=== PATIENT | female | born 1980 | race Caucasian/White ===

== ENCOUNTER 2016-09-23 17:15 | Emergency (ER) | payer BC ==
--- NOTE | 2016-09-23 19:30 | UC ---
Back Pain HPI - HPI Summary HPI Summary: lumbar pain, bilat. Started yesterday, much worse this AM. THinks it happened when she was holding a mat for some kind of sports practice. No falls, no other trauma. Pain progressed today. Feels stiff. Hurts to bend forward, get up out of chair or car. No fever. Wants to make sure it's not a kidney infection, has had one in past - History of Current Complaint Chief Complaint: UCBackPain Stated Complaint: BACK PAIN Time Seen by Provider: 09/23/16 19:16 Hx Obtained From: Patient Hx Last Menstrual Period: 09/14/16 Onset/Duration: Gradual Onset, Lasting Days - 2 Timing: Constant Severity Initially: Mild Severity Currently: Mild Back Pain: Is Discrete @ - bilat lumbar Character: Dull, Aching, Stiffness Aggravating: Movement, Bending Alleviating: Rest, Position Associated Signs And Symptoms: Positive: Flank Pain, Pain with Weight Bearing. Negative: Swelling, Redness, Bruising, Fever, Weakness, Numbness, Abdominal Pain , Bladder Incontinence, Bowel Incontinence - Risk Factors AAA Risk Factors: Negative TAD Risk Factors: Negative Cauda Equina Risk Factors: Negative Epidural Abscess Risk Factors: Negative - Allergies/Home Medications Allergies/Adverse Reactions: Allergies Allergy/AdvReac Type Severity Reaction Status Date / Time Sulfa Drugs Allergy Severe Edema Verified 09/23/16 19:10 Cefuroxime [From Ceftin] Allergy Intermediate Edema Verified 09/23/16 19:10 Home Medications: Home Medications Ibuprofen TAB* [Advil TAB*] 400 mg PO Q8H PRN 09/23/16 [History Confirmed ] PMH/Surg Hx/FS Hx/Imm Hx Endocrine History Of: Reports: Thyroid Disease - History of an enlarged thyroid , but blood tests were normal. Denies: Diabetes, Hyperthyroidism, Hypothyroidism, Dyslipidemia Cardiovascular History Of: Denies: Cardiac Disorders, Hypertension, Pacemaker/ICD, Myocardial Infarction , Congestive Heart Failure, Atrial Fibrillation, Deep Vein Thrombosis, Bleeding Disorders Respiratory History Of: Reports: Asthma Denies: COPD GI/ History Of: Denies: Gastroesophageal Reflux, Ulcer, Gastrointestinal Bleed, Gall Bladder Disease, Kidney Stones, Diverticulitis, Renal Disease, Urosepsis Neurological History Of: Denies: TIA, CVA, Dementia, Seizures, Migraine Psychological History Of: Reports: Depression Denies: Anxiety, Bipolar Disorder, Schizophrenia, Post Traumatic Stress Disorder Cancer History Of: Denies: Lung Cancer, Colorectal Cancer, Breast Cancer, Prostate Cancer, Cervical Cancer Other History Of: Negative For: HIV, Hepatitis B, Hepatitis C, Anticoagulant Therapy - Surgical History Surgical History: None - Family History Known Family History: Positive: Hypertension - Social History Occupation: Employed Full-time Lives: With Family Alcohol Use: None Substance Use Type: None Smoking Status (MU): Never Smoked Tobacco - Immunization History Most Recent Influenza Vaccination: Not the Review of Systems Constitutional: Negative Skin: Negative Eyes: Negative ENT: Negative Respiratory: Negative Cardiovascular: Negative Gastrointestinal: Negative Genitourinary: Negative Motor: Negative Neurovascular: Negative Musculoskeletal: Decreased ROM, Myalgia Neurological: Negative Psychological: Negative All Other Systems Reviewed And Are Negative: Yes Physical Exam Triage Information Reviewed: Yes Appearance: Well-Appearing, No Pain Distress, Well-Nourished Vital Signs: Initial Vital Signs Temp 97.0 F 09/23/16 19:07 Pulse 79 09/23/16 19:07 Resp 16 09/23/16 19:07 BP 109/88 09/23/16 19:07 Pulse Ox 100 09/23/16 19:07 Vital Signs Reviewed: Yes Eye Exam: Normal Neck exam: Normal Respiratory Exam: Normal Cardiovascular Exam: Normal Musculoskeletal Exam: Other - mild bilat lumbar tenderness. No percussive tenderness. Gets up from chair slowly. Normal gait Neurological Exam: Normal Psychological Exam: Normal Skin Exam: Normal Diagnostics - Laboratory Diagnostic Studies Completed/Ordered: U/A 2+ leuks, prot, blood. Culture sent Back Pain Course/Dx - Differential Dx/Diagnosis Differential Diagnosis/HQI/PQRI: Renal Colic, Strain Provider Diagnoses: back strain Discharge - Discharge Plan Condition: Stable Disposition: HOME Prescriptions: Ciprofloxacin HCl [Cipro] 500 mg PO BID #20 tab Cyclobenzaprine TAB* [Flexeril TAB*] 10 mg PO TID PRN #20 tab PRN Reason: back tightness/spasms Tramadol HCl [Ultram] 1 - 2 tab PO Q6HR PRN #14 tab MDD 6 tab PRN Reason: Pain Patient Education Materials: Low Back Strain (ED) Referrals: Alondra Hodges MD [Primary Care Provider] - Additional Instructions: your urine test showed a possible infection. We will know for sure when the culture results are back in 2-3 days. Call here on Wednesday if you haven't heard from us. If the urine culture was negative, stop the Cipro. If it shows infection, we will know whether Cipro is the best medication to kill the bacteria.
[2016-09-23 19:43] VITALS: BP 109/88
== END 2016-09-23 19:57 | disposition home or self-care (01) ==
LOC: UCCORT 17:15
DX: S39.012A Strain of muscle, fascia and tendon of lower back, initial encounter (principal); X50.1XXA Overexertion from prolonged static or awkward postures, initial encounter; Y93.9 Activity, unspecified; Y92.9 Unspecified place or not applicable; Z88.1 Allergy status to other antibiotic agents; Z88.2 Allergy status to sulfonamides
CPT/HCPCS: 87086; 99212; G0463

== ENCOUNTER 2016-10-29 14:55 | Emergency (ER) | payer BC ==
[2016-10-29 18:03] VITALS: BP 137/90
--- NOTE | 2016-10-29 18:07 | UC ---
Throat Pain/Nasal Richard HPI - HPI Summary HPI Summary: comnpalint of nasal ciongestion and cough for over 2 weeks now having pain in face and forehead frequent heaches cough with purulent drainage felt feverish this morning hx of asthma- no need for inhaler use for the last week tired taking OTC cold medications and decongestants - History of Current Complaint Stated Complaint: SINUS COMPLAINT Time Seen by Provider: 10/29/16 18:01 Hx Obtained From: Patient Hx Last Menstrual Period: 10-19-15. - Allergies/Home Medications Allergies/Adverse Reactions: Allergies Allergy/AdvReac Type Severity Reaction Status Date / Time Sulfa Drugs Allergy Severe Edema Verified 09/23/16 19:10 Cefuroxime [From Ceftin] Allergy Intermediate Edema Verified 09/23/16 19:10 PMH/Surg Hx/FS Hx/Imm Hx Previously Healthy: No - uri Endocrine History Of: Reports: Thyroid Disease - History of an enlarged thyroid , but blood tests were normal. Denies: Diabetes, Hyperthyroidism, Hypothyroidism, Dyslipidemia Cardiovascular History Of: Denies: Cardiac Disorders, Hypertension, Pacemaker/ICD, Myocardial Infarction , Congestive Heart Failure, Atrial Fibrillation, Deep Vein Thrombosis, Bleeding Disorders Respiratory History Of: Reports: Asthma Denies: COPD GI/ History Of: Denies: Gastroesophageal Reflux, Ulcer, Gastrointestinal Bleed, Gall Bladder Disease, Kidney Stones, Diverticulitis, Renal Disease, Urosepsis Neurological History Of: Denies: TIA, CVA, Dementia, Seizures, Migraine Psychological History Of: Reports: Depression Denies: Anxiety, Bipolar Disorder, Schizophrenia, Post Traumatic Stress Disorder Cancer History Of: Denies: Lung Cancer, Colorectal Cancer, Breast Cancer, Prostate Cancer, Cervical Cancer Other History Of: Negative For: HIV, Hepatitis B, Hepatitis C, Anticoagulant Therapy - Surgical History Surgical History: None - Family History Known Family History: Positive: Hypertension Negative: Cardiac Disease, Diabetes - Social History Occupation: Employed Full-time Lives: With Family Alcohol Use: None Substance Use Type: None Smoking Status (MU): Never Smoked Tobacco - Immunization History Most Recent Influenza Vaccination: Not the Season Review of Systems Constitutional: Fever Skin: Negative Eyes: Negative ENT: Nasal Discharge Respiratory: Cough Cardiovascular: Negative Gastrointestinal: Negative Genitourinary: Negative Motor: Negative Neurovascular: Negative Musculoskeletal: Negative Neurological: Headache Psychological: Negative All Other Systems Reviewed And Are Negative: Yes Physical Exam Triage Information Reviewed: Yes Appearance: No Pain Distress, Well-Nourished Vital Signs Reviewed: Yes Eyes: Positive: Conjunctiva Clear ENT: Positive: Nasal congestion, Nasal drainage, TMs normal, Other: - frontal and maxillary sinus tenderness. Negative: TM red, Tonsillar swelling, Tonsillar exudate Neck: Positive: No Lymphadenopathy Respiratory: Positive: Lungs clear, Normal breath sounds, No respiratory distress Cardiovascular: Positive: RRR, No Murmur, Pulses Normal Abdomen Description: Positive: Nontender, Soft Bowel Sounds: Positive: Present Musculoskeletal: Positive: No Edema Neurological: Positive: Alert Psychological Exam: Normal Skin Exam: Normal Throat Pain/Nasal Course/Dx - Differential Dx/Diagnosis Differential Diagnosis/HQI/PQRI: Sinusitis, URI Provider Diagnoses: sinusitis Discharge - Discharge Plan Condition: Stable Disposition: HOME Prescriptions: Amoxicillin/Clavulanate TAB* [Augmentin TAB 875*] 875 mg PO BID #20 tab Oxymetazoline 0.05% NASAL SPR* [Afrin 0.05% NASAL SPRAY*] 1 spray NASAL Q12H #1 btl Patient Education Materials: Sinusitis (ED) Referrals: Merline Kumar MD [Primary Care Provider] - Additional Instructions: SINUSITIS What is Sinusitis? Sinusitis is inflammation or infection of the lining of the sinuses behind the bones in your cheeks or forehead. Sinusitis may occur following a common cold, flu, or other infection; allergies; a tooth infection that spreads to the sinuses; swimming in contaminated water; pressure changes in airplanes at high altitudes; violent sneezing or nose blowing or smoking or breathing other peoples smoke. Symptoms Might Include: Nasal Congestion Sneezing Watery eyes, eye irritation, or eye itching Headaches Pressure in the cheeks Wheezing Trouble smelling Sore throat and coughing may occur Treatment Recommendations: Take medicines as prescribed until completely gone. Drink plenty of fluids. Use saline nose spray to thin the mucous and help the sinuses drain. Use a vaporizer or humidifier. Apply warm compresses to the face or forehead several times a day for 10 to 20 minutes. Call Your Doctor or Return Here IF: Your pain increases during treatment. You develop a high temperature. You develop unusual swelling around the eyes. You have difficulty with your vision. You develop a severe headache, earache, or toothache. You develop increased fever or fever that does not respond to medication such as Tylenol?. You have difficulty breathing or catching your breath. You begin to have any other new symptoms that worry you.
== END 2016-10-29 18:50 | disposition home or self-care (01) ==
LOC: UCCORT 14:55
DX: J32.9 Chronic sinusitis, unspecified (principal); Z88.1 Allergy status to other antibiotic agents; Z88.2 Allergy status to sulfonamides
CPT/HCPCS: 99212; G0463

== ENCOUNTER 2017-02-20 21:00 | Emergency (ER) | payer BC ==
[2017-02-20 21:39] VITALS: BP 134/94
[2017-02-20] MEDS ORDERED: Nitrofurantoin Macrocrystals* 50 MG CAP PO ONE (22:17)
--- NOTE | 2017-02-20 22:31 | UC ---
Complaint Female HPI - HPI Summary HPI Summary: pt presents with c/o urinary frequency, urgency and dysuria X 2 days. - History Of Current Complaint Chief Complaint: UCGU Stated Complaint: URINARY COMPLAINT Time Seen by Provider: 02/20/17 22:14 Hx Obtained From: Patient Hx Last Menstrual Period: 02/05/17 ?: No Onset/Duration: Sudden Onset, Lasting Days Severity Initially: Mild Severity Currently: Mild Aggravating Factor(s): Urination - Allergies/Home Medications Allergies/Adverse Reactions: Allergies Allergy/AdvReac Type Severity Reaction Status Date / Time Sulfa Drugs Allergy Severe Edema Verified 02/20/17 21:30 Cefuroxime [From Ceftin] Allergy Intermediate Edema Verified 02/20/17 21:30 PMH/Surg Hx/FS Hx/Imm Hx Previously Healthy: Yes GI/ History: Other - UTI Other GI/ History: UTI Other History Of: Negative For: HIV, Hepatitis B, Hepatitis C, Anticoagulant Therapy - Surgical History Surgical History: None - Family History Known Family History: Positive: Hypertension Negative: Cardiac Disease, Diabetes - Social History Alcohol Use: None Substance Use Type: None Smoking Status (MU): Never Smoked Tobacco - Immunization History Most Recent Influenza Vaccination: Not the Season Review of Systems Constitutional: Negative Skin: Negative Eyes: Negative ENT: Negative Respiratory: Negative Cardiovascular: Negative Gastrointestinal: Negative Genitourinary: Dysuria, Frequency, Urgency Motor: Negative Neurovascular: Negative Musculoskeletal: Negative Neurological: Negative Psychological: Negative All Other Systems Reviewed And Are Negative: Yes Physical Exam Triage Information Reviewed: Yes Appearance: Well-Appearing Vital Signs: Initial Vital Signs Temp 99.5 F 02/20/17 21:31 Pulse 78 02/20/17 21:31 Resp 16 02/20/17 21:31 BP 134/94 02/20/17 21:31 Pulse Ox 100 02/20/17 21:31 Eye Exam: Normal ENT Exam: Normal Neck exam: Normal Respiratory Exam: Normal Cardiovascular Exam: Normal Abdominal Exam: Normal Musculoskeletal Exam: Normal Neurological Exam: Normal Psychological Exam: Normal Skin Exam: Normal Complaint Female Dx - Differential Dx/Diagnosis Differential Diagnosis/HQI/PQRI: Urinary Tract Infection, Other - hematuria Provider Diagnoses: dysuria. hematuria Discharge - Discharge Plan Condition: Stable Disposition: HOME Patient Education Materials: Dysuria (ED) Referrals: Merline Kumar MD [Primary Care Provider] - If Needed
== END 2017-02-20 22:40 | disposition home or self-care (01) ==
LOC: UCCORT 21:00
DX: R30.0 Dysuria (principal); R31.9 Hematuria, unspecified; Z88.1 Allergy status to other antibiotic agents; Z88.2 Allergy status to sulfonamides
CPT/HCPCS: 81003; 99211; G0463

== ENCOUNTER 2017-05-20 19:50 | Emergency (ER) | payer BC ==
[2017-05-20 20:16] VITALS: BP 130/83
--- NOTE | 2017-05-20 20:28 | UC ---
Back Pain HPI - HPI Summary HPI Summary: left mid back pain x 1 day. under the left shoulder blade increase pain with deep breathing and flexion no fever, no chills, no cough, no urinary sx. - History of Current Complaint Chief Complaint: UCGeneralIllness Stated Complaint: PAIN BEHIND LEFT SHOULDER BLADE Time Seen by Provider: 05/20/17 20:10 Hx Obtained From: Patient Hx Last Menstrual Period: 04/20/17 Onset/Duration: Gradual Onset, Lasting Days - 1, Still Present Timing: Constant Severity Initially: Moderate Severity Currently: Moderate Back Pain: Is Discrete @ - left mid back Character: Aching, Spasmodic Aggravating: Movement Alleviating: Nothing Associated Signs And Symptoms: Negative: Swelling, Redness, Bruising, Fever, Weakness, Numbness, Tingling, Abdominal Pain, Flank Pain, Bladder Incontinence, Bowel Incontinence, Weight Loss, Pain with Weight Bearing - Allergies/Home Medications Allergies/Adverse Reactions: Allergies Allergy/AdvReac Type Severity Reaction Status Date / Time Sulfa Drugs Allergy Severe Edema Verified 05/20/17 20:08 Cefuroxime [From Ceftin] Allergy Intermediate Edema Verified 05/20/17 20:08 Home Medications: Home Medications Melatonin 5 mg PO BEDTIME 05/20/17 [History Confirmed 05/20/17] PMH/Surg Hx/FS Hx/Imm Hx Psychological History: Anxiety, Depression Other History Of: Negative For: HIV, Hepatitis B, Hepatitis C, Anticoagulant Therapy - Surgical History Surgical History: None - Family History Known Family History: Positive: Hypertension Negative: Cardiac Disease, Diabetes - Social History Alcohol Use: None Substance Use Type: None Smoking Status (MU): Never Smoked Tobacco - Immunization History Most Recent Influenza Vaccination: Not the Season Review of Systems Constitutional: Negative Skin: Negative Eyes: Negative ENT: Negative Respiratory: Negative Cardiovascular: Negative All Other Systems Reviewed And Are Negative: Yes Physical Exam Triage Information Reviewed: Yes Appearance: Well-Appearing, No Pain Distress, Obese Vital Signs: Initial Vital Signs Temp 97.4 F 05/20/17 20:09 Pulse 79 05/20/17 20:09 Resp 18 05/20/17 20:09 BP 130/83 05/20/17 20:09 Pulse Ox 100 05/20/17 20:09 Vital Signs Reviewed: Yes Eyes: Positive: Conjunctiva Clear ENT: Positive: Normal ENT inspection, Hearing grossly normal, Pharynx normal Neck: Positive: Supple, Nontender, No Lymphadenopathy Respiratory: Positive: Chest non-tender, Lungs clear, Normal breath sounds Cardiovascular: Positive: RRR, No Murmur, Pulses Normal Abdominal Exam: Normal Abdomen Description: Negative: CVA Tenderness (R), CVA Tenderness (L), Distended , Guarding Bowel Sounds: Positive: Present Musculoskeletal: Positive: Other: - mid back : no swelling, no tenderness, good ROM on flexion and extension Back Pain Course/Dx - Differential Dx/Diagnosis Provider Diagnoses: intercostal muscle strain Discharge - Discharge Plan Condition: Stable Disposition: HOME Prescriptions: Cyclobenzaprine TAB* [Flexeril 10 MG TAB*] 10 mg PO BID PRN #20 tab PRN Reason: Pain Naproxen [Naproxen 500 mg] 500 mg PO BID #20 tab Patient Education Materials: Muscle Strain (ED) Referrals: Merline Kumar MD [Medical Doctor] - 5 Days Additional Instructions: intercostal muscle strain
== END 2017-05-20 20:37 | disposition home or self-care (01) ==
LOC: UCCORT 19:50
DX: S29.011A Strain of muscle and tendon of front wall of thorax, initial encounter (principal); X58.XXXA Exposure to other specified factors, initial encounter; F41.9 Anxiety disorder, unspecified; F32.9 Major depressive disorder, single episode, unspecified; E66.9 Obesity, unspecified; Z88.2 Allergy status to sulfonamides
CPT/HCPCS: 99212; G0463

== ENCOUNTER 2017-08-13 09:07 | Emergency (ER) | payer BC ==
--- NOTE | 2017-08-13 09:13 | UC ---
Respiratory Complaint HPI - HPI Summary HPI Summary: 36 year old female presents with chest congestion and cough. - History of Current Complaint Stated Complaint: COUGH Time Seen by Provider: 08/13/17 09:13 Hx Obtained From: Patient Hx Last Menstrual Period: 04/20/17 Onset/Duration: Sudden Onset Severity Initially: Moderate Severity Currently: Moderate - Allergies/Home Medications Allergies/Adverse Reactions: Allergies Allergy/AdvReac Type Severity Reaction Status Date / Time Sulfa Drugs Allergy Severe Edema Verified 08/13/17 09:16 Cefuroxime [From Ceftin] Allergy Intermediate Edema Verified 08/13/17 09:16 PMH/Surg Hx/FS Hx/Imm Hx Previously Healthy: Yes Other History Of: Negative For: HIV, Hepatitis B, Hepatitis C, Anticoagulant Therapy - Surgical History Surgical History: None - Family History Known Family History: Positive: Hypertension Negative: Cardiac Disease, Diabetes - Social History Alcohol Use: None Substance Use Type: None Smoking Status (MU): Never Smoked Tobacco - Immunization History Most Recent Influenza Vaccination: Not the Season Review of Systems Constitutional: Negative Skin: Negative Eyes: Negative ENT: Sore Throat, Ear Ache, Nasal Discharge, Sinus Congestion, Sinus Pain/ Tenderness Respiratory: Cough Cardiovascular: Negative Gastrointestinal: Negative Genitourinary: Negative Motor: Negative Neurovascular: Negative Musculoskeletal: Negative Neurological: Negative Psychological: Negative All Other Systems Reviewed And Are Negative: Yes Physical Exam Triage Information Reviewed: Yes Vital Signs Reviewed: Yes Eye Exam: Normal ENT: Positive: Pharyngeal erythema, Nasal congestion, Nasal drainage Dental Exam: Normal Neck exam: Normal Neck: Positive: 1 Respiratory: Positive: Rhonchi, Wheezing Cardiovascular Exam: Normal Abdominal Exam: Normal Musculoskeletal Exam: Normal Neurological Exam: Normal Psychological Exam: Normal Skin Exam: Normal Respiratory Course/Dx - Differential Dx/Diagnosis Provider Diagnoses: cough. allergic rhinitis Discharge - Discharge Plan Condition: Stable Disposition: HOME Prescriptions: Benzonatate [TESSALON 200 MG CAP] 200 mg PO TID PRN #30 cap PRN Reason: Cough Guaifenesin-Codeine [Cheratussin AC] 1 teasp PO BEDTIME PRN #120 ml MDD 5 ml PRN Reason: Cough LoraTADine TAB(NF) [Claritin 10 MG TAB(NF)] 10 mg PO DAILY #30 tab Patient Education Materials: Allergic Rhinitis (ED) Referrals: Seema Cheung NP [Primary Care Provider] -
[2017-08-13 09:20] VITALS: BP 126/82
== END 2017-08-13 09:29 | disposition home or self-care (01) ==
LOC: UCCORT 09:07
DX: R05 Cough (principal); J30.9 Allergic rhinitis, unspecified; Z88.1 Allergy status to other antibiotic agents; Z88.2 Allergy status to sulfonamides
CPT/HCPCS: 99212; G0463

== ENCOUNTER 2017-08-27 15:28 | Emergency (ER) | payer BC ==
[2017-08-27 15:46] VITALS: BP 155/90
--- NOTE | 2017-08-27 16:38 | UC ---
Complaint Female HPI - HPI Summary HPI Summary: THREE DAYS OF INTERMITTENT RIGHT FLANK PAIN AND URGENCY. NO FEVER. NO HISTORY OF KIDNEY STONE. - History Of Current Complaint Chief Complaint: UCAbdominalPain Stated Complaint: RIGHT SIDE PAIN Time Seen by Provider: 08/27/17 16:03 Hx Obtained From: Patient Hx Last Menstrual Period: 08/19/17 Onset/Duration: Gradual Onset, Lasting Days, Still Present Timing: Intermittent Severity Initially: Moderate Severity Currently: Mild Pain Intensity: 8 Character: Dull, Colicy Aggravating Factor(s): Urination Associated Signs And Symptoms: Positive: Back Pain - RIGHT FLANK. Negative: Vaginal Bleeding/Discharge, Vaginal Discharge, Nausea, Vomiting(# Of Episodes =) - Risk Factors Ectopic Risk Factor: Negative Ovarian Torsion Risk Factor: Negative - Allergies/Home Medications Allergies/Adverse Reactions: Allergies Allergy/AdvReac Type Severity Reaction Status Date / Time Sulfa Drugs Allergy Severe Edema Verified 08/27/17 15:46 Cefuroxime [From Ceftin] Allergy Intermediate Edema Verified 08/27/17 15:46 PMH/Surg Hx/FS Hx/Imm Hx Previously Healthy: Yes Other History Of: Negative For: HIV, Hepatitis B, Hepatitis C, Anticoagulant Therapy - Surgical History Surgical History: None - Family History Known Family History: Positive: Hypertension, Other - FATHER CHOLECYSTITIS Negative: Cardiac Disease, Diabetes, Renal Disease - Social History Occupation: Employed Full-time Lives: With Family Alcohol Use: None Substance Use Type: None Smoking Status (MU): Never Smoked Tobacco - Immunization History Most Recent Influenza Vaccination: Not the Season Review of Systems Constitutional: Negative Skin: Negative Eyes: Negative ENT: Negative Respiratory: Negative Cardiovascular: Negative Gastrointestinal: Negative Genitourinary: Negative Motor: Negative Neurovascular: Negative Musculoskeletal: Negative Neurological: Negative Psychological: Negative Is Patient Immunocompromised?: No All Other Systems Reviewed And Are Negative: Yes Physical Exam Triage Information Reviewed: Yes Appearance: Well-Appearing, No Pain Distress, Well-Nourished Vital Signs: Initial Vital Signs Temp 97.2 F 08/27/17 15:42 Pulse 85 08/27/17 15:42 Resp 16 08/27/17 15:42 BP 155/90 08/27/17 15:42 Pulse Ox 96 08/27/17 15:42 Vital Signs Reviewed: Yes Eye Exam: Normal ENT Exam: Normal ENT: Positive: Normal ENT inspection Dental Exam: Normal Neck exam: Normal Neck: Positive: Supple, Nontender, No Lymphadenopathy Respiratory Exam: Normal Respiratory: Positive: Chest non-tender, Lungs clear, Normal breath sounds, No respiratory distress, No accessory muscle use Cardiovascular Exam: Normal Cardiovascular: Positive: RRR, No Murmur, Pulses Normal, Brisk Capillary Refill Abdomen Description: Positive: Nontender, No Organomegaly, CVA Tenderness (R) Musculoskeletal Exam: Normal Musculoskeletal: Positive: Strength Intact, ROM Intact Neurological Exam: Normal Psychological Exam: Normal Skin Exam: Normal Complaint Female Dx - Differential Dx/Diagnosis Differential Diagnosis/HQI/PQRI: Renal Colic, Ureteral Stone, Urinary Tract Infection Provider Diagnoses: URINARY TRACT INFECTION Discharge - Discharge Plan Condition: Stable Disposition: HOME Prescriptions: Ciprofloxacin HCl [Cipro 500 MG TAB] 500 mg PO BID #14 tab Patient Education Materials: Urinary Tract Infection in Women (ED) Referrals: Seema Cheung NP [Primary Care Provider] -
== END 2017-08-27 16:14 | disposition home or self-care (01) ==
LOC: UCCORT 15:28
DX: N39.0 Urinary tract infection, site not specified (principal); Z88.1 Allergy status to other antibiotic agents; Z88.2 Allergy status to sulfonamides
CPT/HCPCS: 81003; 87086; 99212; G0463

== ENCOUNTER 2017-10-28 13:00 | Emergency (ER) | payer BC ==
--- NOTE | 2017-10-28 17:14 | UC ---
FLU HPI - History of Current Complaint Stated Complaint: FLU SYMPTOMS Time Seen by Provider: 10/28/17 17:14 Hx Last Menstrual Period: 08/19/17 - Allergy/Home Medications Allergies/Adverse Reactions: Allergies Allergy/AdvReac Type Severity Reaction Status Date / Time MS Sulfa Drugs [Sulfa Drugs] Allergy Severe Edema Verified 08/27/17 15:46 MS Cefuroxime [From Ceftin] Allergy Intermediate Edema Verified 08/27/17 15:46 PMH/Surg Hx/FS Hx/Imm Hx Other History Of: Negative For: HIV, Hepatitis B, Hepatitis C, Anticoagulant Therapy - Surgical History Surgical History: None - Family History Known Family History: Positive: Hypertension, Other - FATHER CHOLECYSTITIS Negative: Cardiac Disease, Diabetes, Renal Disease - Social History Alcohol Use: None Substance Use Type: None Smoking Status (MU): Never Smoked Tobacco - Immunization History Most Recent Influenza Vaccination: Not the Season Discharge - Discharge Plan Referrals: Merced Amaya PA [Primary Care Provider] -
--- NOTE | 2017-10-28 17:26 | ED ---
Influenza-Like Illness - HPI Summary HPI Summary: 37F presents with flu like symptoms today. Her coworker was diagnosed with the flu. she states her work sent her in for the flu to get tested. She denies any chest pain or SOB. She admits to body aches and states that it feels like she got hit by a bus. She took some Tylenol. She admits to a productive cough. She denies any sore throat. She admits to sinus congestion. She denies any abdominal pain, nausea or vomiting. - History of Current Complaint Time Seen by Provider: 10/28/17 17:14 - Allergy/Home Medications Allergies/Adverse Reactions: Allergies Allergy/AdvReac Type Severity Reaction Status Date / Time cefuroxime Allergy Edema Verified 10/28/17 17:30 Sulfa (Sulfonamide Allergy Edema Verified 10/28/17 17:30 Antibiotics) PMH/Surg Hx/FS Hx/Imm Hx Endocrine/Hematology History: Reports: Hx Thyroid Disease - History of an enlarged thyroid, but blood tests were normal. Denies: Hx Anticoagulant Therapy, Hx Diabetes Cardiovascular History: Denies: Hx Congestive Heart Failure, Hx Deep Vein Thrombosis, Hx Hypertension , Hx Myocardial Infarction, Hx Pacemaker/ICD Respiratory History: Reports: Hx Asthma Denies: Hx Chronic Obstructive Pulmonary Disease (COPD), Hx Lung Cancer GI History: Denies: Hx Gall Bladder Disease, Hx Gastrointestinal Bleed, Hx Ulcer, Hx Urosepsis History: Denies: Hx Kidney Stones, Hx Renal Disease Neurological History: Denies: Hx Dementia, Hx Migraine, Hx Seizures, Hx Transient Ischemic Attacks (TIA) Psychiatric History: Reports: Hx Depression Denies: Hx Anxiety, Hx Schizophrenia, Hx Bipolar Disorder Infectious Disease History: Denies: Hx Clostridium Difficile, Hx Hepatitis, Hx Human Immunodeficiency Virus (HIV), Hx of Known/Suspected MRSA, Hx Shingles, Hx Tuberculosis, Hx Known/ Suspected VRE, Hx Known/Suspected VRSA, History Other Infectious Disease, Traveled Outside the [place] in Last 30 Days - Family History Known Family History: Positive: Hypertension, Other - FATHER CHOLECYSTITIS Negative: Cardiac Disease, Diabetes, Renal Disease - Social History Alcohol Use: None Substance Use Type: Reports: None Smoking Status (MU): Never Smoked Tobacco Review of Systems Positive: Fever, Fatigue Positive: Nasal Discharge. Negative: Sore Throat Negative: Chest Pain Negative: Shortness Of Breath Negative: Abdominal Pain All Other Systems Reviewed And Are Negative: Yes Physical Exam Triage Information Reviewed: Yes Vital Signs Reviewed: Yes Appearance: Positive: Ill-Appearing Skin: Positive: Warm, Dry Head/Face: Positive: Normal Head/Face Inspection Eyes: Positive: Normal, EOMI, ALISHA, Conjunctiva Clear ENT: Positive: Normal ENT inspection, Pharynx normal, TMs normal Neck: Positive: Supple, Nontender, No Lymphadenopathy Respiratory/Lung Sounds: Positive: Clear to Auscultation, Breath Sounds Present Cardiovascular: Positive: Normal, RRR Abdomen Description: Positive: Nontender, Soft Bowel Sounds: Positive: Present Musculoskeletal: Positive: Normal Neurological: Positive: Normal Psychiatric: Positive: Normal Flu Symptom Course/Dx - Course Course Of Treatment: 37F presents with flu like symptoms today. Her coworker was diagnosed with the flu. she states her work sent her in for the flu to get tested. She denies any chest pain or SOB. She admits to body aches and states that it feels like she got hit by a bus. She took some Tylenol. She admits to a productive cough. She denies any sore throat. She admits to sinus congestion. She denies any abdominal pain, nausea or vomiting. on exam lungs CTA. abdomen soft nontender. pharynx normal. patient has to leave so will treat presumptive for flu while wait for flu test to be run. patient understand and agrees with plan. - Diagnoses Differential Diagnosis/HQI/PQRI: Positive: Influenza, Pneumonia, Upper Respiratory Infection Provider Diagnoses: Influenza Discharge - Discharge Plan Condition: Good Disposition: HOME Prescriptions: Oseltamivir CAP* [Tamiflu CAP*] 75 mg PO BID #10 cap Patient Education Materials: Influenza (ED) Referrals: Merced Amaya PA [Primary Care Provider] - Additional Instructions: symptoms likely due to the flu Take Tamiflu twice for 5 days Take Tylenol and ibuprofen for muscle aches and fever every 6 hours Saline rinse can be used multiple times a day for nasal congestion Use humidifier in room or place bowls of warm water around room for cough Try to drink fluids every hour and eat a small snack every 3 hours Return to ED if develop any new or worsening symptoms
[2017-10-28 17:33] VITALS: BP 128/83
== END 2017-10-28 17:37 | disposition home or self-care (01) ==
LOC: UCCORT 13:00
DX: J11.1 Influenza due to unidentified influenza virus with other respiratory manifestations (principal); Z20.828 Contact with and (suspected) exposure to other viral communicable diseases
CPT/HCPCS: 87502; 99212; G0463

== ENCOUNTER 2017-11-01 08:03 | Emergency (ER) | payer BC ==
[2017-11-01 09:12] VITALS: BP 118/85
--- NOTE | 2017-11-01 09:52 | UC ---
Throat Pain/Nasal Richard HPI - HPI Summary HPI Summary: Pt c/o generalized malaise chills, sore throat, and cough X 1 week. Pt tested last week for flu and was negative. - History of Current Complaint Chief Complaint: UCGeneralIllness Stated Complaint: SORE THROAT COUGH Time Seen by Provider: 11/01/17 09:08 Hx Obtained From: Patient Hx Last Menstrual Period: 10/17/17 ?: No Onset/Duration: Gradual Onset, Lasting Days, Still Present Severity: Mild Pain Intensity: 7 Cough: Productive Associated Signs & Symptoms: Positive: Dysphagia - Epiglottits Risk Factors Epiglottis Risk Factors: Negative - Allergies/Home Medications Allergies/Adverse Reactions: Allergies Allergy/AdvReac Type Severity Reaction Status Date / Time cefuroxime Allergy Edema Verified 11/01/17 09:12 Sulfa (Sulfonamide Allergy Edema Verified 11/01/17 09:12 Antibiotics) PMH/Surg Hx/FS Hx/Imm Hx Previously Healthy: Yes Other History Of: Negative For: HIV, Hepatitis B, Hepatitis C, Anticoagulant Therapy - Surgical History Surgical History: None - Family History Known Family History: Positive: Hypertension, Other - FATHER CHOLECYSTITIS Negative: Cardiac Disease, Diabetes, Renal Disease - Social History Occupation: Employed Full-time Lives: With Family Alcohol Use: None Substance Use Type: None Smoking Status (MU): Never Smoked Tobacco Have You Smoked in the Last Year: No - Immunization History Most Recent Influenza Vaccination: Not the Season Review of Systems Constitutional: Chills, Fatigue Skin: Negative Eyes: Negative ENT: Sore Throat Respiratory: Cough Cardiovascular: Negative Gastrointestinal: Negative Genitourinary: Negative Motor: Negative Neurovascular: Negative Musculoskeletal: Myalgia Neurological: Negative Psychological: Negative Is Patient Immunocompromised?: No All Other Systems Reviewed And Are Negative: Yes Physical Exam Triage Information Reviewed: Yes Appearance: Well-Appearing Vital Signs: Initial Vital Signs Temp 98.9 F 11/01/17 09:07 Pulse 79 11/01/17 09:07 Resp 18 11/01/17 09:07 BP 118/85 11/01/17 09:07 Pulse Ox 99 11/01/17 09:07 Vital Signs Reviewed: Yes Eye Exam: Normal ENT: Positive: Pharyngeal erythema Dental Exam: Normal Neck exam: Normal Respiratory Exam: Normal Cardiovascular Exam: Normal Musculoskeletal Exam: Normal Neurological Exam: Normal Psychological Exam: Normal Skin Exam: Normal Diagnostics - Laboratory Diagnostic Studies Completed/Ordered: RApid flu: negative. rapid strep: negative Throat Pain/Nasal Course/Dx - Differential Dx/Diagnosis Differential Diagnosis/HQI/PQRI: Influenza Provider Diagnoses: viral syndrome Discharge - Discharge Plan Condition: Stable Disposition: HOME Patient Education Materials: Viral Syndrome (ED) Referrals: Merced Amaya PA [Primary Care Provider] - If Needed
== END 2017-11-01 10:01 | disposition home or self-care (01) ==
LOC: UCCORT 08:03
DX: B34.9 Viral infection, unspecified (principal)
CPT/HCPCS: 87502; 87651; 99211; G0463

== ENCOUNTER 2018-04-02 13:40 | Emergency (ER) | payer BC ==
[2018-04-02 14:29] VITALS: BP 125/76
[2018-04-02] MEDS ORDERED: Tetracaine 0.5% OPTH.SOL 4 ML* 1 DROP BTL LEFT EYE ONE (14:39)
[2018-04-02] MEDS ORDERED: Eye Irrigation Solution 30 ML BOTTLE LEFT EYE ONE (14:39)
[2018-04-02] MEDS ORDERED: Fluorescein Sod TOPICAL 0.6* 0.6 MG TEST OPHTHALMIC ONE (14:39)
--- NOTE | 2018-04-02 14:39 | UC ---
Eye Complaint HPI - HPI Summary HPI Summary: 37 y/o female presents to the urgent care c/o left eye irritation that started 2 hours ago. Pt is concerned about possible foreign body. Pt states she rubbed her eye and then irrigated her eye w/ water. eye irritation feels 7/10. Pt denies photophobia, eye pain, fever, dizziness, QUIGLEY, SOB, chest pain, abdominal pain, N/V/D. Pt uses reading glasses and denies contact lenses. - History of Current Complaint Chief Complaint: UCEye Stated Complaint: LT EYE COMP Time Seen by Provider: 04/02/18 14:31 Hx Obtained From: Patient Hx Last Menstrual Period: 03/07/18 ?: No Onset/Duration: Sudden Onset, Lasting Hours - 2 hrs, Still Present Timing: Constant Severity Initially: Moderate Severity Currently: Moderate Pain Intensity: 7 Pain Scale Used: 0-10 Numeric Location of Injury: Conjunctiva - red w/ watery eye discharge and FB sensation Character: Foreign Body Sensation Aggravating Factor(s): Blinking Alleviating Factor(s): Other - close eye Associated Signs And Symptoms: Positive: Drainage (Clear). Negative: Photophobia, Vision Impairment Bilateral, Fever, Swelling - Risk Factors Penetrating Injury Risk Factor: Negative Globe Rupture Risk Factors: Negative Acute Glaucoma Risk Factors: Negative Optic Artery Occlusion Risk Factors: Negative - Allergies/Home Medications Allergies/Adverse Reactions: Allergies Allergy/AdvReac Type Severity Reaction Status Date / Time cefuroxime Allergy Edema Verified 04/02/18 14:30 Sulfa (Sulfonamide Allergy Edema Verified 04/02/18 14:30 Antibiotics) PMH/Surg Hx/FS Hx/Imm Hx Previously Healthy: Yes Psychological History: Anxiety, Depression Other History Of: Negative For: HIV, Hepatitis B, Hepatitis C, Anticoagulant Therapy - Surgical History Surgical History: None - Family History Known Family History: Positive: Hypertension Negative: Cardiac Disease, Diabetes, Renal Disease Family History: FATHER CHOLECYSTITIS - Social History Occupation: Employed Full-time Lives: With Family Alcohol Use: None Substance Use Type: None Smoking Status (MU): Never Smoked Tobacco Have You Smoked in the Last Year: No - Immunization History Most Recent Influenza Vaccination: Not the 2015/2015 Season Review of Systems Constitutional: Negative Skin: Negative Eyes: Eye Redness - left redness and clear eye irritation w/ foreign body sensation ENT: Negative Respiratory: Negative Cardiovascular: Negative Gastrointestinal: Negative Genitourinary: Negative Motor: Negative Neurovascular: Negative Musculoskeletal: Negative Neurological: Negative Psychological: Negative Is Patient Immunocompromised?: No All Other Systems Reviewed And Are Negative: Yes Physical Exam - Summary Physical Exam Summary: Vital Signs Reviewed: Yes General: Well appearing, well nourished obese female in no apparent pain distress Eyes: Positive: RT eye with conjunctiva white, sclera is white. LF eye with inflamed conjunctiva and clear eye discharge. B/L PERRLA, EOMI w/o any nystagmus or strabismus. Fundi appears benign. Disks are well delineated. There are no hemorrhages or exudates. Visual acuity is 20/20 bilaterally, and visual park are within normal limits. No foreign body under eyelids observed with naked eye. No ciliary flush. No chemosis, No photophobia. Normal fundoscopic exam; no proptosis, exophthalmos, nystagmus. ENT: Positive: Normal ENT inspection, Hearing grossly normal, Pharynx normal, Nasal congestion, Nasal drainage - clear, TMs normal - B/L external ear canal clear , TM's WNL. Negative: Tonsillar swelling, Tonsillar exudate Neck: Positive: Supple, Nontender, No Lymphadenopathy Respiratory: Positive: Chest nontender, Lungs clear, Normal breath sounds, No respiratory distress Cardiovascular: Positive: RRR, No Murmur, Pulses Normal, Brisk Capillary Refill Abdomen Description: Positive: Nontender, No Organomegaly, Soft. Negative: CVA Tenderness (R), CVA Tenderness (L) Bowel Sounds: Positive: Present Musculoskeletal: Positive: Strength Intact, ROM Intact, No Edema Neurological Exam: Normal Psychological Exam: Normal Skin Exam: Normal Triage Information Reviewed: Yes Vital Signs: Initial Vital Signs Temp 98.6 F 04/02/18 14:25 Pulse 73 04/02/18 14:25 Resp 16 04/02/18 14:25 BP 125/76 04/02/18 14:25 Pulse Ox 97 04/02/18 14:25 Eye Complaint Course/Dx - Course Course Of Treatment: 37 y/o female presents to the urgent care c/o left eye irritation that started 2 hours ago. Pt is concerned about possible foreign body. Pt states she rubbed her eye and then irrigated her eye w/ water. eye irritation feels 7/10. Pt denies photophobia, eye pain, fever, dizziness, QUIGLEY, SOB, chest pain, abdominal pain, N/V/D. Pt uses reading glasses and denies contact lenses.Hx obtained. PE: RT eye with conjunctiva white, sclera is white. LF eye with inflamed conjunctiva and clear eye discharge. B/L PERRLA, EOMI w/ o any nystagmus or strabismus. Fundi appears benign. Disks are well delineated. There are no hemorrhages or exudates. Visual acuity is 20/20 bilaterally, and visual park are within normal limits. No foreign body under eyelids observed with naked eye. Eye procedure: 2 drops of Tetracaine optha drops placed on Pts left eye, then irrigated with saline drops to flush any foreign particles, then fluorescein instillation and examination with lamp. Positive corneal abrasion observed at 4 and 8 oclock. No foreign body identified. After procedure Pt felt better. Pt Rx Erythromycin ophthalmic ointment and advised to f/u Ophthalmology Dr Huang for further evaluation and treatmnet. Pt understood and agreed w/ plan of care. - Differential Dx/Diagnosis Differential Diagnosis/HQI/PQRI: Conjunctivitis, Corneal Abrasion, Periorbital Cellulitis Provider Diagnoses: 1- left corneal abrasion Discharge - Sign-Out/Discharge Documenting (check all that apply): Patient Departure - D/c home - Discharge Plan Condition: Stable Disposition: HOME Prescriptions: Erythromycin OPTH OINT* [Erythromycin 0.5% OPTH OINT*] 1 applic LEFT EYE TID #1 ophth.oint Patient Education Materials: Corneal Abrasion (ED) Referrals: Merced Amaya PA [Primary Care Provider] - 2 Days Swapna Huang MD [Medical Doctor] - 1 Day Additional Instructions: 1-Please apply ophthalmic ointment as instructed to prevent infection 2-Please f/u with frickertron checker Dr Huang for further evaluation and treatment on corneal abrasion - Billing Disposition and Condition Condition: STABLE Disposition: Home
== END 2018-04-02 15:18 | disposition home or self-care (01) ==
LOC: UCCORT 13:40
DX: S05.02XA Injury of conjunctiva and corneal abrasion without foreign body, left eye, initial encounter (principal); E66.9 Obesity, unspecified; Z88.1 Allergy status to other antibiotic agents; Z88.2 Allergy status to sulfonamides; X58.XXXA Exposure to other specified factors, initial encounter; Y92.9 Unspecified place or not applicable
CPT/HCPCS: 99212; A9270-GY; G0463

== ENCOUNTER 2018-07-24 11:03 | Emergency (ER) | payer BC ==
[2018-07-24 12:50] VITALS: BP 124/79
--- NOTE | 2018-07-24 13:05 | UC ---
Complaint Female HPI - HPI Summary HPI Summary: 2 days pt c/o urinary freq, urgency and doesn't feel like she is emptying her bladder. Minor back pain. - History Of Current Complaint Chief Complaint: UCGU Stated Complaint: URINARY Time Seen by Provider: 07/24/18 12:47 Hx Obtained From: Patient Hx Last Menstrual Period: 07/10/18 ?: No Onset/Duration: Sudden Onset, Lasting Days Timing: Constant Severity Initially: Moderate Severity Currently: Moderate Pain Intensity: 0 Character: Burning Aggravating Factor(s): Urination Associated Signs And Symptoms: Positive: Back Pain - Allergies/Home Medications Allergies/Adverse Reactions: Allergies Allergy/AdvReac Type Severity Reaction Status Date / Time cefuroxime Allergy Edema Verified 07/24/18 12:50 Sulfa (Sulfonamide Allergy Edema Verified 07/24/18 12:50 Antibiotics) PMH/Surg Hx/FS Hx/Imm Hx Previously Healthy: Yes Other History Of: Negative For: HIV, Hepatitis B, Hepatitis C, Anticoagulant Therapy - Surgical History Surgical History: None - Family History Known Family History: Positive: Hypertension, Other - FATHER CHOLECYSTITIS Negative: Cardiac Disease, Diabetes, Renal Disease Family History: FATHER CHOLECYSTITIS - Social History Alcohol Use: None Substance Use Type: None Smoking Status (MU): Never Smoked Tobacco Have You Smoked in the Last Year: No - Immunization History Most Recent Influenza Vaccination: Not the Season Review of Systems Constitutional: Negative Skin: Negative Eyes: Negative ENT: Negative Respiratory: Negative Cardiovascular: Negative Gastrointestinal: Negative Genitourinary: Dysuria, Hematuria, Frequency Motor: Negative Neurovascular: Negative Musculoskeletal: Negative Neurological: Negative Psychological: Negative Is Patient Immunocompromised?: No All Other Systems Reviewed And Are Negative: Yes Physical Exam Triage Information Reviewed: Yes Appearance: Well-Appearing, Well-Nourished, Pain Distress Vital Signs: Initial Vital Signs Temp 98.3 F 07/24/18 12:46 Pulse 91 07/24/18 12:46 Resp 18 07/24/18 12:46 BP 124/79 07/24/18 12:46 Pulse Ox 98 07/24/18 12:46 Vital Signs Reviewed: Yes Eye Exam: Normal ENT Exam: Normal Dental Exam: Normal Neck exam: Normal Respiratory Exam: Normal Respiratory: Positive: Chest non-tender, Lungs clear, Normal breath sounds Cardiovascular Exam: Normal Cardiovascular: Positive: RRR, No Murmur, Pulses Normal Abdomen Description: Positive: Nontender, No Organomegaly, Soft, CVA Tenderness (R) - neg, CVA Tenderness (L) - neg Musculoskeletal Exam: Normal Neurological Exam: Normal Psychological Exam: Normal Skin Exam: Normal Complaint Female Dx - Course Course Of Treatment: hx obtained, exam performed ,meds reviewed, ua pos, urine culure sent, treated - Differential Dx/Diagnosis Differential Diagnosis/HQI/PQRI: Urinary Tract Infection Provider Diagnoses: UTI. low back pain Discharge - Sign-Out/Discharge Documenting (check all that apply): Patient Departure All imaging exams completed and their final reports reviewed: Yes - Discharge Plan Condition: Stable Disposition: HOME Prescriptions: Nitrofurantoin Monohyd/M-Cryst [Macrobid 100 mg Capsule] 100 mg PO BID #14 cap Patient Education Materials: Urinary Tract Infection in Women (ED) Referrals: Merced Amaya PA [Primary Care Provider] - Additional Instructions: 1. take the medication as prescribed. 2. Increase fluid intake. 3. I recommend cranberry pills 25,500 units at first sign of UTI and do them hourly for 12 hours. 4. Follow up if not improving. - Billing Disposition and Condition Condition: STABLE Disposition: Home
--- NOTE | 2018-07-28 16:53 | UC ---
- Progress Note Progress Note: Pt confirmed not read addendums sent Rx for cipro Discharge - Sign-Out/Discharge Documenting (check all that apply): Post-Discharge Follow Up All imaging exams completed and their final reports reviewed: Yes - Discharge Plan Condition: Stable Disposition: HOME Prescriptions: Ciprofloxacin TAB* [Cipro 500 MG TAB*] 500 mg PO BID #14 tab Nitrofurantoin Monohyd/M-Cryst [Macrobid 100 mg Capsule] 100 mg PO BID #14 cap Patient Education Materials: Urinary Tract Infection in Women (ED) Referrals: Merced Amaya PA [Primary Care Provider] - Additional Instructions: 1. take the medication as prescribed. 2. Increase fluid intake. 3. I recommend cranberry pills 25,500 units at first sign of UTI and do them hourly for 12 hours. 4. Follow up if not improving. - Billing Disposition and Condition Condition: STABLE Disposition: Home
== END 2018-07-24 13:10 | disposition home or self-care (01) ==
LOC: UCCORT 11:03
DX: N39.0 Urinary tract infection, site not specified (principal); M54.5 Low back pain; Z88.1 Allergy status to other antibiotic agents; Z88.2 Allergy status to sulfonamides
CPT/HCPCS: 81003; 87077; 87086; 87186; 99212; G0463

== ENCOUNTER 2018-09-17 12:24 | Emergency (ER) | payer BC ==
[2018-09-17 16:10] VITALS: BP 112/79
--- NOTE | 2018-09-17 16:33 | UC ---
Respiratory Complaint HPI - HPI Summary HPI Summary: The patient is a 38-year-old female that presents here with a two-week history of typical cold symptoms with nasal congestion postnasal drip and cough. 5 day she has had severe facial pressure and pain as well as fatigue. She denies any fever or chills she denies any chest pain or shortness of breath. She denies any dental pain or swelling - History of Current Complaint Chief Complaint: UCRespiratory Stated Complaint: SINUS CONCERN Hx Obtained From: Patient Hx Last Menstrual Period: 09/14/18 Onset/Duration: Gradual Onset, Lasting Weeks Timing: Constant Severity Initially: Mild Severity Currently: Severe Pain Intensity: 8 Character: Cough: Nonproductive Aggravating Factors: Nothing Alleviating Factors: Nothing Associated Signs And Symptoms: Positive: URI, Nasal Congestion, Sinus Discomfort Related History: Similar Episode/Dx as: - sinusitis - Allergies/Home Medications Allergies/Adverse Reactions: Allergies Allergy/AdvReac Type Severity Reaction Status Date / Time cefuroxime Allergy Edema Verified 09/17/18 16:10 Sulfa (Sulfonamide Allergy Edema Verified 09/17/18 16:10 Antibiotics) PMH/Surg Hx/FS Hx/Imm Hx Previously Healthy: Yes Respiratory History: Asthma, Bronchitis Other History Of: Negative For: HIV, Hepatitis B, Hepatitis C, Anticoagulant Therapy - Surgical History Surgical History: None - Family History Known Family History: Positive: Hypertension, Other - FATHER CHOLECYSTITIS Negative: Cardiac Disease, Diabetes, Renal Disease Family History: FATHER CHOLECYSTITIS - Social History Alcohol Use: None Substance Use Type: None Smoking Status (MU): Never Smoked Tobacco Have You Smoked in the Last Year: No - Immunization History Most Recent Influenza Vaccination: Not the Season Review of Systems All Other Systems Reviewed And Are Negative: Yes Constitutional: Positive: Fatigue Skin: Positive: Negative Eyes: Positive: Negative ENT: Positive: Nasal Discharge, Sinus Congestion, Sinus Pain/Tenderness Respiratory: Positive: Cough Cardiovascular: Positive: Negative Gastrointestinal: Positive: Negative Genitourinary: Positive: Negative Motor: Positive: Negative Neurovascular: Positive: Negative Musculoskeletal: Positive: Negative Neurological: Positive: Negative Psychological: Positive: Negative Physical Exam Triage Information Reviewed: Yes Appearance: Well-Appearing, No Pain Distress, Well-Nourished Vital Signs: Initial Vital Signs Temp 98.2 F 09/17/18 16:06 Pulse 98 09/17/18 16:06 Resp 16 09/17/18 16:06 BP 112/79 09/17/18 16:06 Pulse Ox 99 09/17/18 16:06 Vital Signs Reviewed: Yes Eyes: Positive: Conjunctiva Clear ENT: Positive: Hearing grossly normal, Nasal congestion, Nasal drainage, Sinus tenderness, Uvula midline. Negative: Tonsillar swelling, Tonsillar exudate Neck: Positive: Supple, Nontender, No Lymphadenopathy Respiratory: Positive: Lungs clear, Normal breath sounds, No respiratory distress, No accessory muscle use Cardiovascular: Positive: RRR, No Murmur Musculoskeletal: Positive: No Edema Neurological: Positive: Alert Skin: Positive: Rashes UC Diagnostic Evaluation - Laboratory O2 Sat by Pulse Oximetry: 99 Respiratory Course/Dx - Differential Dx/Diagnosis Provider Diagnosis: Acute sinusitis Discharge - Sign-Out/Discharge Documenting (check all that apply): Patient Departure All imaging exams completed and their final reports reviewed: No Studies - Discharge Plan Condition: Stable Disposition: HOME Prescriptions: Amoxicillin PO (*) [Amoxicillin 875 MG (*)] 875 mg PO BID #14 tab Fluticasone NASAL SPRAY 50MCG* [Flonase NASAL SPRAY 50MCG*] 2 spray BOTH NARES BID #1 btl Patient Education Materials: Sinusitis (ED) Referrals: Merced Amaya PA [Primary Care Provider] - 5 Days (if not better) Additional Instructions: warm facial compresses saline nasal spray 2 sprays each nostril twice daily 5 minutes later use your flonase - Billing Disposition and Condition Condition: STABLE Disposition: Home
== END 2018-09-17 16:49 | disposition home or self-care (01) ==
LOC: UCCORT 12:24
DX: J01.90 Acute sinusitis, unspecified (principal); Z88.2 Allergy status to sulfonamides; Z88.1 Allergy status to other antibiotic agents
CPT/HCPCS: 99212; G0463

== ENCOUNTER 2018-11-15 13:15 | Emergency (ER) | payer BC ==
[2018-11-15 15:18] VITALS: BP 118/82
--- NOTE | 2018-11-15 15:35 | UC ---
UC General HPI - HPI Summary HPI Summary: sudden fever, fatigue, QUIGLEY, bodyaches and cough x 1 day. hx asthma but requires no tx. - History of Current Complaint Chief Complaint: UCGeneralIllness Stated Complaint: CHILLS,COUGH Time Seen by Provider: 11/15/18 15:29 Hx Obtained From: Patient Hx Last Menstrual Period: 11/11/18 Onset/Duration: Sudden Onset Timing: Constant Pain Intensity: 0 Associated Signs & Symptoms: Negative: Diarrhea, Dysuria, Vomiting - Allergy/Home Medications Allergies/Adverse Reactions: Allergies Allergy/AdvReac Type Severity Reaction Status Date / Time cefuroxime Allergy Edema Verified 11/15/18 15:15 Sulfa (Sulfonamide Allergy Edema Verified 11/15/18 15:15 Antibiotics) PMH/Surg Hx/FS Hx/Imm Hx Respiratory History: Asthma Other History Of: Negative For: HIV, Hepatitis B, Hepatitis C, Anticoagulant Therapy - Surgical History Surgical History: None - Family History Known Family History: Positive: Hypertension, Other - FATHER CHOLECYSTITIS Negative: Cardiac Disease, Diabetes, Renal Disease Family History: FATHER CHOLECYSTITIS - Social History Alcohol Use: None Substance Use Type: None Smoking Status (MU): Never Smoked Tobacco Have You Smoked in the Last Year: No - Immunization History Most Recent Influenza Vaccination: Not the Season Review of Systems All Other Systems Reviewed And Are Negative: Yes Constitutional: Positive: Fever, Fatigue Skin: Positive: Negative Eyes: Positive: Negative ENT: Positive: Negative Respiratory: Positive: Cough Cardiovascular: Positive: Negative Gastrointestinal: Positive: Negative Genitourinary: Positive: Negative Motor: Positive: Negative Neurovascular: Positive: Negative Musculoskeletal: Positive: Myalgia Neurological: Positive: Headache Psychological: Positive: Negative Physical Exam Triage Information Reviewed: Yes Appearance: Well-Appearing Vital Signs: Initial Vital Signs Temp 98.6 F 11/15/18 15:14 Pulse 85 11/15/18 15:14 Resp 16 11/15/18 15:14 BP 118/82 11/15/18 15:14 Pulse Ox 100 11/15/18 15:14 Vital Signs Reviewed: Yes Eyes: Positive: Conjunctiva Clear ENT: Positive: Pharynx normal, TMs normal. Negative: Nasal drainage Neck: Positive: Supple, Nontender, No Lymphadenopathy Respiratory: Positive: Lungs clear, Normal breath sounds Cardiovascular: Positive: RRR, No Murmur Abdomen Description: Positive: Nontender, No Organomegaly, Soft Bowel Sounds: Positive: Present Musculoskeletal: Positive: ROM Intact Neurological: Positive: Alert Psychological: Positive: Age Appropriate Behavior Skin Exam: Normal Course/Dx - Differential Dx - Multi-Symptom Differential Diagnoses: Other - symptoms c/w influenza in this community. pt has hx of asthma thus will tx with tamiflu and renew her rescue inhaler. - Diagnoses Provider Diagnosis: Influenza-like illness Discharge - Sign-Out/Discharge Documenting (check all that apply): Patient Departure All imaging exams completed and their final reports reviewed: No Studies - Discharge Plan Condition: Stable Disposition: HOME Prescriptions: Albuterol HFA INHALER* [Ventolin HFA Inhaler*] 2 puff INH Q6H PRN #1 mdi PRN Reason: Cough Oseltamivir CAP* [Tamiflu CAP*] 75 mg PO BID 5 Days #10 cap Patient Education Materials: Influenza (ED) Forms: *Work Release Referrals: Merced Amaya PA [Primary Care Provider] - 7 Days - Billing Disposition and Condition Condition: STABLE Disposition: Home - Attestation Statements Provider Attestation: Per institutional requirements, I have reviewed the chart, however, I was not consulted specifically or made aware of this patient by the midlevel provider. I did not personally evaluate, interact with , or disposition this patient.
== END 2018-11-15 15:44 | disposition home or self-care (01) ==
LOC: UCCORT 13:15
DX: J11.1 Influenza due to unidentified influenza virus with other respiratory manifestations (principal); Z88.1 Allergy status to other antibiotic agents; Z88.2 Allergy status to sulfonamides
CPT/HCPCS: 99212; G0463

== ENCOUNTER 2019-03-20 18:47 | Emergency (ER) | payer BC ==
[2019-03-20 20:16] VITALS: BP 131/81
[2019-03-20] MEDS ORDERED: Polymyx/Trimethoprim OPTH* 10 ML BTL LEFT EYE ONE (20:31)
--- NOTE | 2019-03-20 20:31 | UC ---
Eye Complaint HPI - HPI Summary HPI Summary: 38 yo female with left eye redness and tearing x 1-2 days very itchy no fever/chills eye irritated but not painful no URI symptoms no fb sensation - History of Current Complaint Chief Complaint: UCEye Stated Complaint: LEFT EYE CONCERN Time Seen by Provider: 03/20/19 20:24 Hx Obtained From: Patient Hx Last Menstrual Period: 03/04/19 Onset/Duration: Gradual Onset, Lasting Days Timing: Constant Severity Initially: Mild Severity Currently: Moderate Pain Intensity: 3 Pain Scale Used: 0-10 Numeric Location of Injury: Conjunctiva Associated Signs And Symptoms: Positive: Drainage (Clear) - Allergies/Home Medications Allergies/Adverse Reactions: Allergies Allergy/AdvReac Type Severity Reaction Status Date / Time cefuroxime Allergy Edema Verified 03/20/19 20:12 Sulfa (Sulfonamide Allergy Edema Verified 03/20/19 20:12 Antibiotics) PMH/Surg Hx/FS Hx/Imm Hx Previously Healthy: Yes Respiratory History: Asthma Other History Of: Negative For: HIV, Hepatitis B, Hepatitis C, Anticoagulant Therapy - Surgical History Surgical History: None - Family History Known Family History: Positive: Hypertension, Other - FATHER CHOLECYSTITIS Negative: Cardiac Disease, Diabetes, Renal Disease Family History: FATHER CHOLECYSTITIS - Social History Alcohol Use: None Substance Use Type: None Smoking Status (MU): Never Smoked Tobacco Have You Smoked in the Last Year: No - Immunization History Most Recent Influenza Vaccination: Not the Season Review of Systems All Other Systems Reviewed And Are Negative: Yes Constitutional: Positive: Negative Skin: Positive: Negative Eyes: Positive: Eye Redness - and tearing/itchy ENT: Positive: Negative Respiratory: Positive: Negative Cardiovascular: Positive: Negative Gastrointestinal: Positive: Negative Genitourinary: Positive: Negative Motor: Positive: Negative Neurovascular: Positive: Negative Musculoskeletal: Positive: Negative Neurological: Positive: Negative Psychological: Positive: Negative Physical Exam Triage Information Reviewed: Yes Appearance: Well-Appearing, No Pain Distress, Well-Nourished Vital Signs: Initial Vital Signs Temp 98.3 F 03/20/19 20:13 Pulse 72 03/20/19 20:13 Resp 16 03/20/19 20:13 BP 131/81 03/20/19 20:13 Pulse Ox 99 03/20/19 20:13 Eyes: Positive: Conjunctiva Inflamed - no purulent d/c, no fb, PERRL, EOMI ENT: Positive: Hearing grossly normal, Uvula midline. Negative: Nasal congestion, Nasal drainage, Tonsillar swelling, Tonsillar exudate, Trismus, Muffled voice, Hoarse voice, Dental tenderness, Sinus tenderness Neck: Positive: Supple, Nontender, No Lymphadenopathy Respiratory: Positive: Lungs clear, Normal breath sounds, No respiratory distress, No accessory muscle use Cardiovascular: Positive: RRR, No Murmur Abdomen Description: Positive: Nontender. Negative: CVA Tenderness (R), CVA Tenderness (L) Musculoskeletal: Positive: ROM Intact, No Edema Neurological: Positive: Alert Psychological Exam: Normal Skin Exam: Normal Eye Complaint Course/Dx - Differential Dx/Diagnosis Provider Diagnosis: Conjunctivitis, left eye Discharge - Sign-Out/Discharge Documenting (check all that apply): Patient Departure All imaging exams completed and their final reports reviewed: No Studies - Discharge Plan Condition: Stable Disposition: HOME Patient Education Materials: Conjunctivitis (ED) Referrals: Merced Amaya PA [Primary Care Provider] - If Needed Additional Instructions: use antibiotic drops as directed I suggest you also use ZADITOR eye drop (OTC) recheck for eye pain or light sensitivity recheck in 4 days if not better - Billing Disposition and Condition Condition: STABLE Disposition: Home
== END 2019-03-20 20:50 | disposition home or self-care (01) ==
LOC: UCCORT 18:47
DX: H10.9 Unspecified conjunctivitis (principal)
CPT/HCPCS: 99212; G0463

== ENCOUNTER 2019-09-20 14:38 | Emergency (ER) | payer BC ==
[2019-09-20 15:43] VITALS: BP 123/81
--- NOTE | 2019-09-20 15:49 | UC ---
Throat Pain/Nasal Richard HPI - HPI Summary HPI Summary: 39-year-old female presents with complaints of one week history of nasal congestion, sinus pressure, postnasal drip, and bilateral ear fullness. States symptoms have been progressively worsening, started with a nonproductive cough over the last 2 days, and developed a low-grade fever last evening. Has been taking [id number] Tylenol Cold and sinus with little relief in symptoms. Denies ear pain, sore throat, chest pain, shortness of breath, abdominal pain, nausea, vomiting, or diarrhea. - History of Current Complaint Chief Complaint: UCGeneralIllness Stated Complaint: SINUS Time Seen by Provider: 09/20/19 15:34 Hx Obtained From: Patient Hx Last Menstrual Period: 08/21/19 Pain Intensity: 8 - Allergies/Home Medications Allergies/Adverse Reactions: Allergies Allergy/AdvReac Type Severity Reaction Status Date / Time cefuroxime Allergy Edema Verified 09/20/19 15:37 Sulfa (Sulfonamide Allergy Edema Verified 09/20/19 15:37 Antibiotics) Home Medications: Home Medications Phenylephrine/Dm/Acetaminop/GG [Tylenol Cold-Flu Severe Caplet] 1 each PO ONCE PRN 09/20/19 [History Confirmed 09/20/19] PMH/Surg Hx/FS Hx/Imm Hx Previously Healthy: Yes Psychological History: Depression Other History Of: Negative For: HIV, Hepatitis B, Hepatitis C, Anticoagulant Therapy - Surgical History Surgical History: None - Family History Known Family History: Positive: Hypertension Negative: Cardiac Disease, Diabetes, Renal Disease Family History: FATHER CHOLECYSTITIS - Social History Occupation: Employed Full-time Lives: Alone Alcohol Use: Rare Substance Use Type: None Smoking Status (MU): Never Smoked Tobacco Have You Smoked in the Last Year: No - Immunization History Most Recent Influenza Vaccination: Not the 2015/2015 Season Review of Systems All Other Systems Reviewed And Are Negative: Yes Constitutional: Positive: Fever. Negative: Chills Skin: Negative: Rash Eyes: Negative: Drainage, Eye Redness ENT: Positive: Ear Ache, Nasal Discharge, Sinus Congestion, Sinus Pain/ Tenderness. Negative: Sore Throat Respiratory: Positive: Cough. Negative: Shortness Of Breath Cardiovascular: Negative: Palpitations, Chest Pain Gastrointestinal: Negative: Abdominal Pain, Vomiting, Diarrhea, Nausea Genitourinary: Positive: Negative Musculoskeletal: Positive: Negative Neurological: Positive: Negative Is Patient Immunocompromised?: No Physical Exam - Summary Physical Exam Summary: GENERAL APPEARANCE: Alert and cooperative obese female who appears to be in no acute distress. EYES: Conjunctiva clear. No drainage. EARS: External auditory canals and tympanic membranes clear, hearing grossly intact. NOSE: Moderate nasal congestion. No nasal discharge. Maxillary sinus tenderness. THROAT: Pharyngeal cobblestoning. No tonsilar inflammation, swelling, exudate, or lesions. Uvula midline. NECK: Neck supple, non-tender without lymphadenopathy. CARDIAC: Normal S1 and S2. No S3, S4 or murmurs. Rhythm is regular. There is no peripheral edema, cyanosis or pallor. Extremities are warm and well perfused. Capillary refill is less than 2 seconds. Peripheral pulses intact. LUNGS: Clear to auscultation without rales, rhonchi, wheezing or diminished breath sounds. Cough not observed. ABDOMEN: Positive bowel sounds. Soft, nondistended, nontender. No guarding or rebound. No masses or hepatosplenomegally. MUSKULOSKELETAL: ROM intact to all extremities. No joint erythema or tenderness. Normal muscular development. Normal gait. SKIN: Skin normal color, texture and turgor with no lesions or eruptions. Triage Information Reviewed: Yes Vital Signs: Initial Vital Signs Temp 97.6 F 09/20/19 15:40 Pulse 103 09/20/19 15:40 Resp 20 09/20/19 15:40 BP 123/81 09/20/19 15:40 Pulse Ox 100 09/20/19 15:40 Vital Signs Reviewed: Yes Throat Pain/Nasal Course/Dx - Course Course Of Treatment: 39-year-old female presents with complaints of one week history of nasal congestion, sinus pressure, postnasal drip, and bilateral ear fullness. States symptoms have been progressively worsening, started with a nonproductive cough over the last 2 days, and developed a low-grade fever last evening. Has been taking [id number] Tylenol Cold and sinus with little relief in symptoms. Denies ear pain, sore throat, chest pain, shortness of breath, abdominal pain, nausea, vomiting, or diarrhea. Afebrile. Vital signs stable. Patient had moderate nasal congestion, maxillary sinus tenderness, normal TMs, pharyngeal cobblestoning without tonsillar swelling or exudate, no cervical lymphadenopathy , clear bilateral breath sounds, and otherwise unremarkable exam. Discussed with the patient that her symptoms were consistent with an acute sinusitis and with her history of progressively worsening symptoms and new onset of fever yesterday will treat her with a course of Augmentin 875 mg twice a day 10 days as well as recommend symptomatic treatment at this time. She is to follow-up with her primary care provider in 3-5 days if symptoms are not improving. Anticipatory guidance warning symptoms reviewed with the patient. Verbalizes understanding and agrees with plan of care. - Differential Dx/Diagnosis Differential Diagnosis/HQI/PQRI: Influenza, Sinusitis, URI Provider Diagnosis: Acute sinusitis Discharge ED - Sign-Out/Discharge Documenting (check all that apply): Patient Departure All imaging exams completed and their final reports reviewed: No Studies - Discharge Plan Condition: Stable Disposition: HOME Prescriptions: Amoxicillin/Clavulanate TAB* [Augmentin TAB 875*] 875 mg PO BID 10 Days #20 tab Fluticasone NASAL SPRAY 50MCG* [Flonase NASAL SPRAY 50MCG*] 2 spray BOTH NARES DAILY #1 btl Patient Education Materials: Sinusitis (ED) Referrals: Merced Amaya PA [Primary Care Provider] - 3 Days (Follow up in 3-5 days if no improvement in symptoms.) Additional Instructions: Your history and exam are consistent with a sinus infection. With the worsening of your symptoms and new onset of fever yesterday we will start you on an antibiotic for the infection. Start Augmentin 875 mg 1 tablet twice daily for 10 days. Take with food to avoid upset stomach. Be sure to complete the entire course even if feeling better. Use a saline rinse kit such as Neti Pot or NeilMed at least twice a day to help thin secretions and promote drainage of the sinuses. Use fluticasone (Flonase) nasal spray 2 sprays each nostril once daily. Use an over the counter decongestant such as Sudafed according to directions to help with congestion. Take over the counter acetaminophen (Tylenol) or ibuprofen (Advil, Motrin) according to directions as needed for pain or fever. Follow up with your primary care provider in 3-5 days if symptoms persist. Seek immediate medical attention in the emergency room if you have fever greater than 100.5 F despite taking acetaminophen or ibuprofen, have chest pain , difficulty breathing, are unable to swallow, or have any worsening of symptoms. - Billing Disposition and Condition Condition: STABLE Disposition: Home - Attestation Statements Provider Attestation: Per institutional requirements, I have reviewed the chart, however, I was not consulted specifically or made aware of this patient by the midlevel provider. I did not personally evaluate, interact with , or disposition this patient.
== END 2019-09-20 16:07 | disposition home or self-care (01) ==
LOC: UCCORT 14:38
DX: J01.00 Acute maxillary sinusitis, unspecified (principal); H93.8X3 Other specified disorders of ear, bilateral; Z88.1 Allergy status to other antibiotic agents; Z88.2 Allergy status to sulfonamides
CPT/HCPCS: 99212; G0463